=== PATIENT | male | born 1965 | race Caucasian/White ===

== ENCOUNTER 2021-06-18 12:33 | Emergency (ER) | payer BC ==
[2021-06-18 14:42] VITALS: BP 161/99; PULSE 90; RESP 17; TEMP 98.4
[2021-06-18] MEDS ORDERED: DIPH,PERTUS(ACELL)TETVAC-LF 0.5 ML VIAL IM ONE (16:31)
--- NOTE | 2021-06-18 17:11 | ED ---
Skin/Abscess/FB HPI - General Chief complaint: Skin/Abscess/Foreign Body Stated complaint: Hand lac Time Seen by Provider: 06/18/21 16:55 Source: patient, RN notes reviewed Mode of arrival: ambulatory Limitations: no limitations - History of Present Illness Initial comments: This is a well-appearing 55-year-old male that presents to the emergency room w ith complaints of cutting his left thumb 2 days ago while gutting a deer. He states that he used electrical tape after washing it out on it to bandage it. He states his tetanus shot is not up-to-date. He does have history of diabetes and hypertension. He states that today he noticed some streaking up the left arm. He denies any fevers, nausea vomiting or diarrhea. -: days(s) (2) Tetanus Up to Date: no Location: L hand Severity scale (1-10): 3 Quality: aching Consistency: constant Improves with: none Worsens with: movement - Related Data Previous Rx's Medication Instructions Recorded Cephalexin [Keflex] 500 mg PO Q6HR 7 Days #28 cap 06/18/21 Allergies Allergy/AdvReac Type Severity Reaction Status Date / Time No Known Allergies Allergy Verified 06/18/21 14:41 Review of Systems ROS Statement: Those systems with pertinent positive or pertinent negative responses have been documented in the HPI. ROS Other: All systems not noted in ROS Statement are negative. Past Medical History Past Medical History: Diabetes Mellitus, Hyperlipidemia, Hypertension History of Any Multi-Drug Resistant Organisms: None Reported Past Surgical History: Tonsillectomy Past Psychological History: No Psychological Hx Reported Smoking Status: Never smoker Past Alcohol Use History: None Reported Past Drug Use History: None Reported General Exam Limitations: no limitations General appearance: alert, in no apparent distress Head exam: Present: atraumatic, normocephalic, normal inspection Eye exam: Present: normal appearance, EOMI Neck exam: Present: normal inspection, full ROM. Absent: tenderness, meningismus, lymphadenopathy Respiratory exam: Present: normal lung sounds bilaterally. Absent: respiratory distress, wheezes, rales, rhonchi, stridor, chest wall tenderness, accessory muscle use Cardiovascular Exam: Present: regular rate, normal rhythm, normal heart sounds. Absent: systolic murmur, diastolic murmur, rubs, gallop, clicks GI/Abdominal exam: Present: soft, normal bowel sounds. Absent: distended, tenderness, guarding, rebound, rigid Back exam: Present: normal inspection, full ROM. Absent: tenderness, CVA tenderness (R), CVA tenderness (L), rash noted Neurological exam: Present: alert, oriented X3, normal gait Psychiatric exam: Present: normal affect, normal mood Skin exam: Present: warm, dry, intact, normal color, erythema (Phlebitis left arm from the thumb to elbow). Absent: rash Course Vital Signs 06/18/21 14:37 Temperature 98.4 F Pulse Rate 90 Respiratory 17 Rate Blood Pressure 161/99 O2 Sat by Pulse 96 Oximetry Medical Decision Making - Medical Decision Making Patient cut his thumb 2 days ago when gutting a deer. He did irrigate the wound. Today he awoke with a red streak up his left arm. Patient's tetanus was updated. He was started on antibiotics. He was discharged home with strict return parameters is any worsening redness, fevers or increased pain to return to the emergency room. Followup with his primary care doctor this week. Case discussed with Dr Schreiber. Disposition Clinical Impression: Cellulitis Clinical Impression: (Ruled Out): Phlebitis Disposition: HOME SELF-CARE Condition: Good Instructions (If sedation given, give patient instructions): Cellulitis (ED) Prescriptions: Cephalexin [Keflex] 500 mg PO Q6HR 7 Days #28 cap Is patient prescribed a controlled substance at d/c from ED?: No Referrals: Liss Sinclair DO [Primary Care Provider] - 1-2 days Time of Disposition: 17:10
== END 2021-06-18 18:04 | disposition home or self-care (01) ==
LOC: EC 12:33
DX: L03.114 Cellulitis of left upper limb (principal); I10 Essential (primary) hypertension; E78.5 Hyperlipidemia, unspecified; E11.9 Type 2 diabetes mellitus without complications; Z90.89 Acquired absence of other organs
CPT/HCPCS: 90471; 90715; 99283